=== PATIENT | male | born 1930 | race Caucasian/White ===

== ENCOUNTER 2016-09-02 17:23 | Outpatient (CLI) | payer MEDICARE, OTHER | END 2016-09-02 17:24 | disposition EMS.NT | LOC: EMS 17:23 | PROVIDERS: ATTEND Surgery | DX: Z03.89 Encounter for observation for other suspected diseases and conditions ruled out (principal); W17.89XA Other fall from one level to another, initial encounter; Y92.480 Sidewalk as the place of occurrence of the external cause ==

== ENCOUNTER 2016-09-08 16:58 | Outpatient (CLI) | payer MEDICARE, OTHER | END 2016-09-08 16:59 | disposition home or self-care (01) | DX: S01.90XS Unspecified open wound of unspecified part of head, sequela (principal) ==

== ENCOUNTER 2016-10-18 19:05 | Outpatient (CLI) | payer MEDICARE, OTHER | END 2016-10-18 23:59 | disposition EMS.NT | DX: Z03.89 Encounter for observation for other suspected diseases and conditions ruled out (principal); W01.0XXA Fall on same level from slipping, tripping and stumbling without subsequent striking against object, initial encounter; Y93.01 Activity, walking, marching and hiking; Y92.002 Bathroom of unspecified non-institutional (private) residence as the place of occurrence of the external cause ==

== ENCOUNTER 2016-12-17 11:37 | Outpatient (CLI) | payer MEDICARE, OTHER ==
[2016-12-17 20:27] LABS: ALBUMIN/GLOBULIN RATIO 1.6 (1.0-2.2); BILIRUBIN,TOTAL 0.6 mg/dL (0.2-1.0); BUN - BLOOD UREA NITROGEN 12 mg/dL (6-20); CALCIUM 9.4 mg/dL (8.5-10.3); CARBON DIOXIDE - CO2 29 mmol/L (21-32); CHLORIDE 103 mmol/L (101-111); CHOL/HDL RATIO 3.6 (<5.0); CHOLESTEROL 131 mg/dL; CREATININE 0.9 mg/dL (0.6-1.2); GFR - MDRD 80 (>89); GLUCOSE 91 mg/dL (70-100); HDL CHOLESTEROL 36 mg/dL; POTASSIUM 4.2 mmol/L (3.5-5.0); SODIUM 140 mmol/L (135-145); TRIGLYCERIDES 108 mg/dL; VLDL CHOLESTEROL 22 mg/dL
== END 2016-12-17 11:38 | disposition home or self-care (01) ==
LOC: LAB.N 11:37
PROVIDERS: ATTEND Family Medicine
DX: Z79.899 Other long term (current) drug therapy (principal)
CPT/HCPCS: 36415; 80053; 80061; G0103; 84153

== ENCOUNTER 2017-03-24 18:21 | Outpatient (CLI) | payer MEDICARE, OTHER | END 2017-03-24 18:22 | disposition short-term general hospital (02) | LOC: EMS 18:21 | PROVIDERS: ATTEND Surgery | DX: R46.4 Slowness and poor responsiveness (principal); R41.0 Disorientation, unspecified | CPT/HCPCS: A0425; A0427; A0888 ==

== ENCOUNTER 2017-05-26 13:04 | Outpatient (CLI) | payer MEDICARE, OTHER ==
--- NOTE | 2017-05-26 18:25 | XRAY Report ---
TWO VIEW CHEST: 05/26/2017 CLINICAL INDICATION: Atelectasis. COMPARISON: 04/29/2017 Frontal and lateral views of the chest demonstrate a normal cardiac silhouette. Linear scarring or a telectasis is stable bilateral. No new consolidation, effusion, or pneumothorax is present. IMPRESSION: STABLE LINEAR SCARRING OR ATELECTASIS. JOB #: [id number] EXT JOB #:[id number]
== END 2017-05-26 13:05 | disposition home or self-care (01) ==
LOC: DI 13:04
PROVIDERS: ATTEND Family Medicine
DX: J98.11 Atelectasis (principal)
CPT/HCPCS: 71020

== ENCOUNTER 2017-06-23 11:09 | Outpatient (CLI) | payer MEDICARE, OTHER ==
--- NOTE | 2017-06-24 16:22 | XRAY Report ---
DATE OF SERVICE: 06/23/2017 TWO VIEW CHEST: 06/23/2017 CLINICAL INDICATION: Atelectasis. COMPARISON: 05/26/2017, 04/29/2017. FINDINGS: Frontal and lateral views of the chest demonstrate a normal cardiac silhouette. Linear sc arring or atelectasis at the bases is stable. No new consolidation, effusion, or pneumothorax is present. IMPRESSION: Stable linear scarring or atelectasis at the bases. No significant interval change. TD: 06/23/2017 18:25
== END 2017-06-23 11:10 | disposition home or self-care (01) ==
LOC: DI 11:09
PROVIDERS: ATTEND Family Medicine
DX: J98.11 Atelectasis (principal)
CPT/HCPCS: 71020

== ENCOUNTER 2018-04-16 05:27 | Outpatient (CLI) | payer MEDICARE, OTHER | END 2018-04-16 05:28 | disposition short-term general hospital (02) | LOC: EMS 05:27 | PROVIDERS: ATTEND Surgery | DX: M54.9 Dorsalgia, unspecified (principal); M25.512 Pain in left shoulder; Z91.81 History of falling | CPT/HCPCS: A0425; A0427; A0888 ==

== ENCOUNTER 2019-02-16 12:18 | Outpatient (CLI) | payer MEDICARE, OTHER ==
--- NOTE | 2019-02-17 14:14 | XRAY Report ---
Reason: UNSPECIFIED OSTEOARTHRITIS, UNSPECIFIED SITE Procedure Date: 02/16/2019 Accession Number: [id number] / [id number] Procedure: XRN - Ankle 3 View RT CPT Code: FULL RESULT: EXAM: RIGHT ANKLE RADIOGRAPHY EXAM DATE: 02/16/2019 01:00 PM. CLINICAL HISTORY: Right ankle pain. COMPARISON: None. TECHNIQUE: 3 views. FINDINGS: Bones: No fracture or bone lesion is identified. Corticated small osseous fragments are seen at the tip of the medial and lateral malleolus which may be related to old trauma and/or degenerative change. Posterior plantar spurring is seen. Joints: Mild to moderate diffuse degenerative changes are seen in the tibiotalar and midfoot joints. The talar dome remains relatively preserved. Soft Tissues: Diffuse vascular calcification is present. IMPRESSION: 1. No acute osseous abnormality demonstrated. 2. Mild to moderate diffuse degenerative changes seen. 3. Diffuse vascular calcifications. [facility]
--- NOTE | 2019-02-17 14:16 | XRAY Report ---
Reason: UNSPECIFIED OSTEOARTHRITIS, UNSPECIFIED SITE Procedure Date: 02/16/2019 Accession Number: [id number] / [id number] Procedure: XRN - Knee 3 View RT CPT Code: FULL RESULT: EXAM: RIGHT KNEE RADIOGRAPHY EXAM DATE: 02/16/2019 01:00 PM. CLINICAL HISTORY: Artificial replacement of the right knee. COMPARISON: ANKLE 3 VIEW RT 02/16/2019 12:50 PM. TECHNIQUE: 2 views. FINDINGS: Bones: Focal benign appearing exostosis is seen along the medial distal femoral metadiaphysis. No fracture or bone lesion is identified. Joints: Knee arthroplasty hardware is seen in place. No hardware failure is demonstrated. A few joint bodies/calcifications are seen in the popliteal fossa region. Alignment is preserved. No joint effusion. Soft Tissues: Moderate vascular calcification is seen. IMPRESSION: 1. No acute osseous abnormality demonstrated. 2. 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 3. Benign appearing exostosis along the medial distal femoral metadiaphysis. 4. Diffuse vascular calcification. [facility]IA
== END 2019-02-16 12:19 | disposition home or self-care (01) ==
LOC: DI.N 12:18
PROVIDERS: ATTEND Family Medicine
DX: M19.071 Primary osteoarthritis, right ankle and foot (principal); Z96.651 Presence of right artificial knee joint; M89.9 Disorder of bone, unspecified

== ENCOUNTER 2020-03-13 16:35 | Outpatient (CLI) | payer MEDICARE, OTHER | END 2020-03-13 16:36 | disposition short-term general hospital (02) | LOC: EMS 16:35 | PROVIDERS: ATTEND Surgery | DX: R50.9 Fever, unspecified (principal); R53.1 Weakness; R41.0 Disorientation, unspecified | CPT/HCPCS: A0425; A0429 ==